=== PATIENT | male | born 1985 | race Caucasian/White ===

== ENCOUNTER 2016-08-20 02:19 | Emergency (ER) | payer MEDICAID ==
[~2016-08-20] VITALS: Ht 187.9 cm; Wt 79.4 kg
[~2016-08-20 02:19] MED LIST: ACIPHEX20 MG PO; ACYCLOVIR800 MG PO; ADDERALL30 MG PO; ALLEGRA180 MG PO; AMOXIL500 MG PO; AMPICILLIN500 MG PO; ANAPROX DS550 MG PO; ATARAX25 MG PO; ATIVAN0.5 MG PO; AUGMENTIN 875 M1 TAB PO; BACTRIM DS 8001 TA1; BACTRIM DS 8001 TA1 PO; BENADRYL25 M2 PO; BENTYL10 MG PO; BENTYL20 MG PO; CATAFLAM50 MG PO; CATAPRES0.1 MG PO; CIPROFLOXACIN500 MG PO; CLARITIN10 MG PO; CLEOCIN HCL150 MG PO; CLEOCIN HCL300 MG PO; CLONIDINE0.1 MG PO; CLONIDINE0.2 MG PO; COMPAZINE10 MG PO; DAYPRO600 M1 PO; DOXYCYCLINE MO100 MG PO; ERYTHROMYCIN5 MG/G2 OP; FLEXERIL10 MG PO; FLEXERIL5 MG PO; HYDROCODONE BIT1 T11 PO; HYDROXYZINE PAM50 MG PO; IBU-8800 MG PO; IBU800 MG PO; KEFLEX500 MG PO; KENALOG0.5% TP; MOTRIN800 MG; MOTRIN800 MG PO; Motrin,Rufen800 MG PO; NAPROSYN500 MG PO; NKHM; NKHM PO; ONDANSETRON4 MG PO; OXYCONTIN40 MG PO; Orphenadrine C100 MG PO; PEN-VEE K500 MG PO; PEPCID20 MG PO; PERCOCET 325 MG1 TA7; PERCOCET 325 MG1 TA7 PO; PHENERGAN W/DM120 ML PO; PHENERGAN25 M1 PO; PREDNICOT20 MG PO; PROVENTIL0.09 MG/AC IH; ROBAXIN-750750 MG PO; ROBAXIN750 MG PO; SEPTRA DS 800 M1 TAB PO; SEROQUEL25 MG PO; SINEMET 25-1001 TA1 PO; SINEMET 25-100M1 TAB PO; SUBOXONE 8 MG-1 EACH SL; TRAMADOL HCL50 MG PO; TRIMOX500 MG PO; ULTRAM50 MG PO; VIBRAMYCIN100 MG PO; VICODIN 5/500 505 MG PO; VICODIN 500 MG-1 TAB PO; VICODIN ES 7501 TA1 PO; VISTARIL25 M1 PO; VISTARIL50 MG PO; VOLTAREN50 M1 PO; ZANTAC150 MG PO; ZITHROMAX Z PA250 MG PO; ZOFRAN ODT4 MG PO; ZOFRAN ODT4 MG SL; ZOFRAN4 MG PO; [UNRECOGNIZED DRUG - OTHER] PO
[2016-08-20 08:06] VITALS: BP 120/75
== END 2016-08-20 08:06 | disposition home or self-care (01) ==
LOC: ED 02:19
DX: R51 Headache (principal); F14.10 Cocaine abuse, uncomplicated; F19.10 Other psychoactive substance abuse, uncomplicated; F17.200 Nicotine dependence, unspecified, uncomplicated

== ENCOUNTER 2017-09-04 13:55 | Inpatient (IN) | payer OTHER ==
[~2017-09-04] VITALS: Ht 188 cm; Wt 85.3 kg
[2017-09-04 15:38] LABS: BASO % 0.4 % (0.0-1.0); EOS % 0.2 % (1.0-4.0); HEMATOCRIT 42.3 % (42.0-52.0); HEMOGLOBIN 14.1 g/dl (14.0-18.0); LYMPH # 1.8 10*3/uL (1.3-4.4); LYMPH % 32.8 % (27.0-41.0); MEAN CELL VOLUME 89.4 fl (80.0-94.0); MEAN CORPUSCULAR HGB 29.8 pg (27.0-31.0); MEAN CORPUSCULAR HGB CONC 33.3 g/dl (33.0-37.0); MEAN PLATELET VOLUME 10.6 fl (9.6-12.3); MONO # 0.4 10*3/uL (0.1-1.0); MONO % 6.3 % (3.0-9.0); NEUT # 3.3 10*3/uL (2.3-7.9); NEUT % 60.1 % (47.0-73.0); PLATELET COUNT AUTOMATED 196 10*3/uL (130-400); RED BLOOD COUNT 4.73 10*6/uL (4.50-5.90); RED CELL DISTRI WIDTH 13.2 % (0-14.5); WHITE BLOOD COUNT 5.5 10*3/uL (4.8-10.8)
[2017-09-04 15:53] LABS: BILIRUBIN NEGATIVE (NEGATIVE); BLOOD NEGATIVE (NEGATIVE); CLARITY CLEAR (CLEAR); COLOR YELLOW (YELLOW); GLUCOSE NEGATIVE (NEGATIVE); KETONE NEGATIVE (NEGATIVE); LEUKO ESTERASE NEGATIVE (NEGATIVE); NITRITE NEGATIVE (NEGATIVE); SPECIFIC GRAVITY 1.015 (1.005-1.030)
[2017-09-04 15:57] LABS: ALBUMIN 3.8 gm/dl (3.1-4.5); ALKALINE PHOSPHATASE 76 U/L (45-117); BUN 8 mg/dl (7-24); CHLORIDE 106 mmol/L (98-107); CREATININE 0.83 mg/dL (0.70-1.30); POTASSIUM 4.2 mmol/L (3.5-5.1); SGOT/AST 30 IU/L (3-35); SGPT/ALT 47 U/L (12-78); SODIUM 137 mmol/L (136-145); TOTAL PROTEIN 7.5 gm/dL (6.4-8.2)
[2017-09-04 16:02] LABS: URINE AMPHETAMINES < 1000 (1000ng/ml); URINE BARBITURATES < 200 (200ng/ml); URINE BENZODIAZEPINES > 200 (200ng/ml); URINE CANNABINOIDS (THC) < 50 (50ng/ml); URINE COCAINE < 300 (300ng/ml); URINE METHADONE < 300 (300ng/ml); URINE OPIATES > 300 (300ng/ml)
[2017-09-04 16:09] LABS: BACTERIA TRACE; MUCOUS 1+; RBC 0-2 rbc/hpf (0-2); WBC 0-2 wbc/hpf (0-5)
[2017-09-04 16:12] LABS: ETHYL ALCOHOL < 3.0 mg/dl (<3)
[2017-09-04 16:14] LABS: URINE PHENCYCLIDINE < 25 (25ng/ml)
[2017-09-04 20:00] VITALS: BP 113/59
[2017-09-05] VITALS: BP 120/71
[2017-09-05 04:00] VITALS: BP 109/65
[2017-09-05 08:00] VITALS: BP 101/49
[2017-09-05 12:00] VITALS: BP 110/56
[2017-09-05] MEDS ORDERED: PRILOSEC20 M1 PO (15:50)
[2017-09-05 16:00] VITALS: BP 120/75
[2017-09-05 20:00] VITALS: BP 122/77
[2017-09-06] VITALS: BP 111/61
[2017-09-06 08:00] VITALS: BP 120/79
[2017-09-06 16:00] VITALS: BP 127/77
[2017-09-06 20:00] VITALS: BP 138/79
[2017-09-07] VITALS: BP 124/81
== END 2017-09-07 07:50 | disposition home or self-care (01) | DRG 897 ==
LOC: 5E 13:55
PROVIDERS: Family Medicine
DX: F11.10 Opioid abuse, uncomplicated (principal); F13.10 Sedative, hypnotic or anxiolytic abuse, uncomplicated; F14.10 Cocaine abuse, uncomplicated; F41.9 Anxiety disorder, unspecified; F17.210 Nicotine dependence, cigarettes, uncomplicated; Z84.89 Family history of other specified conditions; Z71.6 Tobacco abuse counseling

== ENCOUNTER 2019-02-13 13:41 | Inpatient (IN) | payer OTHER ==
[~2019-02-13] VITALS: Ht 188 cm; Wt 76.7 kg
[~2019-02-13 13:41] MED LIST changes: +PRILOSEC20 M1 PO; +[UNRECOGNIZED DRUG - OTHER]
--- NOTE | 2019-02-13 14:50 | NUR ---
A 33, admitted to , under the services of SEBASTIÁN Baeza DO with a diagnosis of OPIATE/ETOH WITHDRAWAL. Chief complaint is WITHDRAWAL. Patient arrived via ambulatory from [place]. Monitor applied. Initial assessment completed. Vital signs taken and recorded. SEBASTIÁN BAEZA DO notified of admission to the unit. Orders received. See assessment for past medical history, medications and allergies. Patient oriented to unit. Clothing/patient valuable form completed. RAMONITA BRINK
--- NOTE | 2019-02-13 15:00 | NUR ---
PATIENT INFORMED NOT TO LEAVE THE FLOOR OR ITS AN AUTOMATIC DISCHARGE. PATIENT STATED UNDERSTANDING.
--- NOTE | 2019-02-13 15:09 | NUR ---
MADE AWARE THAT PATIENT IS ON THE FLOOR, AND TAKES NO HOME MEDS. STATED OK.
[2019-02-13 15:10] VITALS: BP 123/82
--- NOTE | 2019-02-13 15:16 | NUR ---
PATIENT MEETS [facility]. CINA=[id number]. PATIENT WANTS TO FOLLOW UP WITH [facility] FOR HIS AFTERCARE PLAN. PATIENT HAS AN APPOINTMENT ON SUNDAY, January AT 9AM FOR FOR THE [employer] SERVICE. RICHIE SMITH B.A. HOSPICE DIRECTOR
[2019-02-13 16:00] VITALS: BP 121/76
--- NOTE | 2019-02-13 16:16 | NUR ---
PATIENT MADE AWARE THAT URINE SAMPLE NEEDED BEFORE MEDICATION CAN BE ADMINISTERED. STATED UNDERSTANDING.
[2019-02-13 16:24] LABS: BASO % 0.5 % (0.0-1.0); EOS # 0.1 10*3/uL (0.0-0.4); EOS % 1.6 % (1.0-4.0); HEMATOCRIT 41.9 % (42.0-52.0); HEMOGLOBIN 13.6 g/dl (14.0-18.0); LYMPH % 31.3 % (27.0-41.0); MEAN CELL VOLUME 89.5 fl (80.0-94.0); MEAN CORPUSCULAR HGB 29.1 pg (27.0-31.0); MEAN CORPUSCULAR HGB CONC 32.5 g/dl (33.0-37.0); MEAN PLATELET VOLUME 10.2 fl (9.6-12.3); MONO # 0.9 10*3/uL (0.1-1.0); MONO % 14.4 % (3.0-9.0); NEUT # 3.3 10*3/uL (2.3-7.9); PLATELET COUNT AUTOMATED 244 10*3/uL (130-400); RED BLOOD COUNT 4.68 10*6/uL (4.50-5.90); RED CELL DISTRI WIDTH 13.7 % (0-14.5); WHITE BLOOD COUNT 6.3 10*3/uL (4.8-10.8)
[2019-02-13 16:42] LABS: ALBUMIN 3.4 gm/dl (3.1-4.5); ALKALINE PHOSPHATASE 68 U/L (45-117); BUN 15 mg/dl (7-24); CHLORIDE 105 mmol/L (98-107); CREATININE 0.78 mg/dL (0.70-1.30); SGOT/AST 34 IU/L (3-35); SGPT/ALT 45 U/L (12-78); SODIUM 137 mmol/L (136-145); TOTAL PROTEIN 7.6 gm/dL (6.4-8.2)
[2019-02-13 16:44] LABS: ETHYL ALCOHOL < 3.0 mg/dl (<3)
--- NOTE | 2019-02-13 17:45 | NUR ---
URINE SPECIMEN SENT TO LAB
[2019-02-13 18:07] LABS: BILIRUBIN NEGATIVE (NEGATIVE); BLOOD NEGATIVE (NEGATIVE); CLARITY CLEAR (CLEAR); COLOR YELLOW (YELLOW); GLUCOSE NEGATIVE (NEGATIVE); KETONE NEGATIVE (NEGATIVE); LEUKO ESTERASE NEGATIVE (NEGATIVE); NITRITE NEGATIVE (NEGATIVE); SPECIFIC GRAVITY 1.015 (1.005-1.030); UROBILINOGEN 0.2 E.U./dl (0.2-1.0)
[2019-02-13 18:16] LABS: URINE AMPHETAMINES < 1000 (1000ng/ml); URINE BARBITURATES < 200 (200ng/ml); URINE BENZODIAZEPINES < 200 (200ng/ml); URINE CANNABINOIDS (THC) < 50 (50ng/ml); URINE COCAINE < 300 (300ng/ml); URINE METHADONE < 300 (300ng/ml); URINE OPIATES < 300 (300ng/ml)
[2019-02-13 18:20] LABS: URINE PHENCYCLIDINE < 25 (25ng/ml)
[2019-02-13 20:00] VITALS: BP 126/80
--- NOTE | 2019-02-13 20:18 | NUR ---
24 HR chart check completed.
--- NOTE | 2019-02-13 22:46 | NUR ---
Patient displaying withdrawal symptoms, including: irritability, anxiousness, restlessness and agitation. Scheduled/PRN medications provided, SEE EMAR. Will continue to monitor medication effectiveness.
[2019-02-14] VITALS: BP 130/78
--- NOTE | 2019-02-14 | NUR ---
[facility] "HELPING". REQUESTING SHOWER. MONITOR REMOVED
--- NOTE | 2019-02-14 01:00 | NUR ---
Patient resting. Responding to scheduled medications with fewer complaints of pain and anxiety.
[2019-02-14 04:00] VITALS: BP 126/78
--- NOTE | 2019-02-14 04:00 | NUR ---
Patient resting. Responding to scheduled medications with fewer complaints of pain and anxiety.
[2019-02-14 08:00] VITALS: BP 122/76
[2019-02-14 12:00] VITALS: BP 110/76
--- NOTE | 2019-02-14 14:01 | NUR ---
PATIENT IS GOING TO FOLLOW UP WITH [facility] IN [place] FOR MEDICATION ASSISTED TREATMENT. [place] STAFF REVIEWED APPOINTMENT WITH PATIENT. PATIENT AGREES AND UNDERSTANDS HIS AFTERCARE PLAN. RICHIE SMITH B.A. ENGRAVER JEWELRY
[2019-02-14 16:00] VITALS: BP 124/78
--- NOTE | 2019-02-14 19:52 | NUR ---
24 HR chart check completed.
[2019-02-14 20:00] VITALS: BP 119/77
--- NOTE | 2019-02-14 20:00 | NUR ---
Patient resting. Responding to scheduled medications with fewer complaints of pain and anxiety.
--- NOTE | 2019-02-14 22:30 | NUR ---
Patient resting. Responding to scheduled medications with fewer complaints of pain and anxiety.
[2019-02-15] VITALS: BP 107/75
--- NOTE | 2019-02-15 | NUR ---
Patient SLEEPING. Responding to scheduled medications with fewer complaints of pain and anxiety.
--- NOTE | 2019-02-15 03:29 | NUR ---
ROUTINE MEDS PROVIDED WITH ASSIST WITH WITHDRAWAL S/S, SEE EMAR.
--- NOTE | 2019-02-15 06:00 | NUR ---
Patient resting. Responding to scheduled medications with fewer complaints of pain and anxiety.
[2019-02-15 08:00] VITALS: BP 118/86
[2019-02-15 12:00] VITALS: BP 127/83
[2019-02-15 16:00] VITALS: BP 109/66
--- NOTE | 2019-02-15 18:01 | NUR ---
DIETARY CAME TO DESK AND SAID PATIENT WAS NOT IN ROOM WAS IT OK TO LEAVE HIS TRAY. UPON INVESTIGATING PATIENT LEFT AMA.
--- NOTE | 2019-02-15 18:09 | NUR ---
RIGGING ENGINEER AND DR. JAMES AWARE OF AMA.
== END 2019-02-15 18:09 | disposition left against medical advice (07) | DRG 770 ==
LOC: 4E 13:41
PROVIDERS: Student in an Organized Health Care Education/Training Program; ADMIT Internal Medicine
DX: F10.230 Alcohol dependence with withdrawal, uncomplicated (principal); F11.23 Opioid dependence with withdrawal; D64.9 Anemia, unspecified; Z53.29 Procedure and treatment not carried out because of patient's decision for other reasons; F14.10 Cocaine abuse, uncomplicated; F17.210 Nicotine dependence, cigarettes, uncomplicated; Z71.6 Tobacco abuse counseling; Z79.899 Other long term (current) drug therapy

== ENCOUNTER 2019-04-15 16:48 | Emergency (ER) | payer OTHER ==
[~2019-04-15] VITALS: Ht 187.9 cm; Wt 80.7 kg
[2019-04-15 16:49] VITALS: BP 124/69
[2019-04-15] MEDS ORDERED: OMNICEF300 MG PO (17:18)
== END 2019-04-15 17:47 | disposition home or self-care (01) ==
LOC: ED 16:48
DX: H66.91 Otitis media, unspecified, right ear (principal); H72.91 Unspecified perforation of tympanic membrane, right ear; K21.9 Gastro-esophageal reflux disease without esophagitis

== ENCOUNTER 2019-05-13 09:20 | Emergency (ER) | payer OTHER ==
[~2019-05-13] VITALS: Ht 187.9 cm; Wt 83.9 kg
[~2019-05-13 09:20] MED LIST changes: +OMNICEF300 MG PO
[2019-05-13 09:22] VITALS: BP 107/72
[2019-05-13] MEDS ORDERED: OMNICEF300 MG PO (09:41)
[2019-05-13] MEDS ORDERED: CIPRODEX 0.3%-7.5 ML OT (09:41)
== END 2019-05-13 09:59 | disposition home or self-care (01) ==
LOC: ED 09:20
DX: H65.91 Unspecified nonsuppurative otitis media, right ear (principal); K21.9 Gastro-esophageal reflux disease without esophagitis; F17.200 Nicotine dependence, unspecified, uncomplicated; Z79.2 Long term (current) use of antibiotics

== ENCOUNTER 2019-09-15 01:42 | Emergency (ER) | payer OTHER ==
[~2019-09-15] VITALS: Ht 170.1 cm; Wt 90.7 kg
[~2019-09-15 01:42] MED LIST changes: +CIPRODEX 0.3%-7.5 ML OT
[2019-09-15 02:21] VITALS: BP 130/86
[2019-09-15] MEDS ORDERED: CEPHALEXIN500 M1 PO (02:36)
== END 2019-09-15 03:26 | disposition home or self-care (01) ==
LOC: ED 02:13
DX: S61.210A Laceration without foreign body of right index finger without damage to nail, initial encounter (principal); K21.9 Gastro-esophageal reflux disease without esophagitis; F41.9 Anxiety disorder, unspecified; F17.200 Nicotine dependence, unspecified, uncomplicated; Z79.899 Other long term (current) drug therapy; W26.0XXA Contact with knife, initial encounter; Y93.9 Activity, unspecified; Y92.89 Other specified places as the place of occurrence of the external cause; Y99.8 Other external cause status

== ENCOUNTER 2019-10-31 17:00 | Emergency (ER) | payer OTHER ==
[~2019-10-31] VITALS: Ht 187.9 cm; Wt 81.6 kg
[~2019-10-31 17:00] MED LIST changes: +CEPHALEXIN500 M1 PO
[2019-10-31 17:07] VITALS: BP 140/89
[2019-10-31 20:54] LABS: BILIRUBIN NEGATIVE (NEGATIVE); BLOOD 1+ (NEGATIVE); CLARITY CLEAR (CLEAR); COLOR YELLOW (YELLOW); GLUCOSE NEGATIVE (NEGATIVE); KETONE NEGATIVE (NEGATIVE); LEUKO ESTERASE NEGATIVE (NEGATIVE); NITRITE NEGATIVE (NEGATIVE); UROBILINOGEN 0.2 E.U./dl (0.2-1.0)
[2019-10-31 20:57] LABS: BACTERIA TRACE; EPITHELIAL CELLS 0-2; MUCOUS 2+; WBC 0-2 wbc/hpf (0-5)
[2019-10-31 20:58] LABS: URINE AMPHETAMINES > 1000 (1000ng/ml); URINE BARBITURATES < 200 (200ng/ml); URINE BENZODIAZEPINES < 200 (200ng/ml); URINE CANNABINOIDS (THC) < 50 (50ng/ml); URINE COCAINE > 300 (300ng/ml); URINE METHADONE < 300 (300ng/ml); URINE OPIATES > 300 (300ng/ml)
[2019-10-31 21:01] LABS: URINE PHENCYCLIDINE < 25 (25ng/ml)
== END 2019-10-31 21:25 | disposition home or self-care (01) ==
LOC: ED 17:00
PROVIDERS: Nurse Practitioner Family
DX: R10.30 Lower abdominal pain, unspecified (principal); K21.9 Gastro-esophageal reflux disease without esophagitis; F17.200 Nicotine dependence, unspecified, uncomplicated; Z79.899 Other long term (current) drug therapy

== ENCOUNTER 2020-09-12 16:50 | Inpatient (IN) | payer OTHER ==
[~2020-09-12] VITALS: Ht 187.9 cm; Wt 77.7 kg
[2020-09-12 17:01] VITALS: BP 123/51
[2020-09-12 18:13] LABS: BUN 14 mg/dl (7-24); CHLORIDE 110 mmol/L (98-107); CREATININE 0.94 mg/dL (0.70-1.30); POTASSIUM 3.8 mmol/L (3.5-5.1); SODIUM 139 mmol/L (136-145)
[2020-09-12 18:22] LABS: ACETAMINOPHEN (TYLENOL) < 5.0 ug/ml (10-30); ETHYL ALCOHOL < 3.0 mg/dl (<3)
[2020-09-12 18:36] LABS: BASO % 0.5 % (0.0-1.0); EOS # 0.1 10*3/uL (0.0-0.4); EOS % 1.5 % (1.0-4.0); HEMATOCRIT 46.4 % (42.0-52.0); LYMPH # 2.7 10*3/uL (1.3-4.4); LYMPH % 36.4 % (27.0-41.0); MEAN CELL VOLUME 94.3 fl (80.0-94.0); MEAN CORPUSCULAR HGB 28.7 pg (27.0-31.0); MEAN CORPUSCULAR HGB CONC 30.4 g/dl (33.0-37.0); MEAN PLATELET VOLUME 10.4 fl (9.6-12.3); MONO # 0.8 10*3/uL (0.1-1.0); MONO % 11.2 % (3.0-9.0); NEUT # 3.8 10*3/uL (2.3-7.9); NEUT % 50.3 % (47.0-73.0); PLATELET COUNT AUTOMATED 196 10*3/uL (130-400); RED BLOOD COUNT 4.92 10*6/uL (4.50-5.90); RED CELL DISTRI WIDTH 13.4 % (0-14.5); WHITE BLOOD COUNT 7.5 10*3/uL (4.8-10.8)
[2020-09-12 18:41] VITALS: BP 107/80
[2020-09-12 19:48] VITALS: BP 132/70
[2020-09-12 21:01] LABS: BILIRUBIN Negative (Negative); BLOOD 1+ (Negative); CLARITY Clear (Clear); COLOR Yellow (Yellow); GLUCOSE Negative (Negative); KETONE Negative (Negative); LEUKO ESTERASE Negative (Negative); NITRITE Negative (Negative); PH 5.5 (4.5-8.0); SPECIFIC GRAVITY >= 1.030 (1.001-1.030)
[2020-09-12 21:08] LABS: URINE AMPHETAMINES > 1000 (1000ng/ml); URINE BARBITURATES < 200 (200ng/ml); URINE BENZODIAZEPINES < 200 (200ng/ml); URINE CANNABINOIDS (THC) > 50 (50ng/ml); URINE COCAINE > 300 (300ng/ml); URINE METHADONE < 300 (300ng/ml); URINE OPIATES > 300 (300ng/ml); URINE PHENCYCLIDINE < 25 (25ng/ml)
[2020-09-12 21:15] LABS: BACTERIA TRACE; MUCOUS TRACE; WBC 0-2 wbc/hpf (0-5)
[2020-09-12 23:33] VITALS: BP 122/84
[2020-09-13] VITALS (7 sets, daily range): BP systolic 99–116; BP diastolic 46–77
[2020-09-13 05:52] LABS: ALKALINE PHOSPHATASE 91 U/L (45-117); BUN 12 mg/dl (7-24); CHLORIDE 108 mmol/L (98-107); FREE T4 1.12 ng/dl (0.76-1.46); SGOT/AST 37 IU/L (3-35); SGPT/ALT 42 U/L (12-78); SODIUM 134 mmol/L (136-145); TOTAL PROTEIN 7.9 gm/dL (6.4-8.2)
[2020-09-13 06:46] LABS: BASO % 0.3 % (0.0-1.0); EOS # 0.2 10*3/uL (0.0-0.4); EOS % 2.9 % (1.0-4.0); HEMATOCRIT 42.1 % (42.0-52.0); LYMPH # 2.6 10*3/uL (1.3-4.4); LYMPH % 43.4 % (27.0-41.0); MEAN CORPUSCULAR HGB 28.9 pg (27.0-31.0); MEAN PLATELET VOLUME 10.9 fl (9.6-12.3); MONO # 0.7 10*3/uL (0.1-1.0); MONO % 11.2 % (3.0-9.0); NEUT # 2.5 10*3/uL (2.3-7.9); RED BLOOD COUNT 4.95 10*6/uL (4.50-5.90); RED CELL DISTRI WIDTH 13.5 % (0-14.5); WHITE BLOOD COUNT 5.9 10*3/uL (4.8-10.8)
[2020-09-13 06:50] LABS: MEAN CELL VOLUME 85.1 fl (80.0-94.0); PLATELET COUNT AUTOMATED 267 10*3/uL (130-400)
[2020-09-14 08:00] VITALS: BP 113/75
[2020-09-14 12:00] VITALS: BP 124/67
[2020-09-14 16:00] VITALS: BP 134/80
[2020-09-14 20:00] VITALS: BP 117/65
[2020-09-15] VITALS: BP 132/84
[2020-09-15 08:00] VITALS: BP 120/84
== END 2020-09-15 11:02 | disposition home or self-care (01) | DRG 812 ==
LOC: ED 16:50 → ICCU 22:35 → 5E 22:35 → EDHOLD 22:35 → ICCU 09-13 07:12 → 5E 09-13 14:30
PROVIDERS: Internal Medicine; Student in an Organized Health Care Education/Training Program; ADMIT Internal Medicine; ATTEND Internal Medicine
DX: T43.621A Poisoning by amphetamines, accidental (unintentional), initial encounter (principal); T40.601A Poisoning by unspecified narcotics, accidental (unintentional), initial encounter; E87.1 Hypo-osmolality and hyponatremia; E44.0 Moderate protein-calorie malnutrition; F15.10 Other stimulant abuse, uncomplicated; F14.10 Cocaine abuse, uncomplicated; F12.10 Cannabis abuse, uncomplicated; F11.10 Opioid abuse, uncomplicated; R00.1 Bradycardia, unspecified; F17.210 Nicotine dependence, cigarettes, uncomplicated; E87.8 Other disorders of electrolyte and fluid balance, not elsewhere classified; R74.01 Elevation of levels of liver transaminase levels; F13.10 Sedative, hypnotic or anxiolytic abuse, uncomplicated; F17.200 Nicotine dependence, unspecified, uncomplicated; Z53.29 Procedure and treatment not carried out because of patient's decision for other reasons; Y92.89 Other specified places as the place of occurrence of the external cause; Z71.6 Tobacco abuse counseling; Z68.22 Body mass index [BMI] 22.0-22.9, adult

== ENCOUNTER 2021-05-24 09:49 | Emergency (ER) | payer OTHER ==
[~2021-05-24] VITALS: Ht 187.9 cm; Wt 81.6 kg
[2021-05-24 09:54] VITALS: BP 131/86
[2021-05-24] MEDS ORDERED: CLEOCIN HCL150 MG PO (12:24)
[2021-05-24] MEDS ORDERED: HYDROCODONE-AC1 EAC1 PO (12:24)
== END 2021-05-24 12:36 | disposition home or self-care (01) ==
LOC: ED 09:49
DX: K04.7 Periapical abscess without sinus (principal); Z87.891 Personal history of nicotine dependence

== ENCOUNTER 2021-11-17 15:50 | Emergency (ER) | payer OTHER ==
[~2021-11-17] VITALS: Ht 187.9 cm; Wt 86.2 kg
[~2021-11-17 15:50] MED LIST changes: +HYDROCODONE-AC1 EAC1 PO
[2021-11-17 16:10] VITALS: BP 138/78
== END 2021-11-17 18:53 | disposition home or self-care (01) ==
LOC: ED 15:50
DX: S81.812A Laceration without foreign body, left lower leg, initial encounter (principal); Z87.891 Personal history of nicotine dependence; Z98.890 Other specified postprocedural states; W29.3XXA Contact with powered garden and outdoor hand tools and machinery, initial encounter; Y93.89 Activity, other specified; Y92.89 Other specified places as the place of occurrence of the external cause; Y99.8 Other external cause status

== ENCOUNTER 2022-03-17 11:39 | Emergency (ER) | payer OTHER ==
[~2022-03-17] VITALS: Ht 182.8 cm; Wt 104.3 kg
[2022-03-17 11:55] VITALS: BP 114/78
[2022-03-17 12:07] LABS: BASO % 0.4 % (0.0-1.0); EOS % 0.2 % (1.0-4.0); HEMATOCRIT 35.4 % (42.0-52.0); LYMPH # 1.3 10*3/uL (1.3-4.4); LYMPH % 16.5 % (27.0-41.0); MEAN CELL VOLUME 88.5 fl (80.0-94.0); MEAN CORPUSCULAR HGB 29.8 pg (27.0-31.0); MEAN CORPUSCULAR HGB CONC 33.6 g/dl (33.0-37.0); MEAN PLATELET VOLUME 9.6 fl (9.6-12.3); MONO # 0.4 10*3/uL (0.1-1.0); MONO % 5.2 % (3.0-9.0); NEUT # 6.2 10*3/uL (2.3-7.9); NEUT % 77.5 % (47.0-73.0); PLATELET COUNT AUTOMATED 255 10*3/uL (130-400); RED CELL DISTRI WIDTH 14.2 % (0-14.5)
[2022-03-17 12:22] LABS: ALKALINE PHOSPHATASE 83 U/L (45-117); BUN 10 mg/dl (7-24); CHLORIDE 104 mmol/L (98-107); CREATININE 0.73 mg/dL (0.70-1.30); POTASSIUM 4.3 mmol/L (3.5-5.1); SGPT/ALT 37 U/L (12-78); SODIUM 137 mmol/L (136-145); TOTAL PROTEIN 7.2 gm/dL (6.4-8.2)
[2022-03-17 12:27] LABS: ETHYL ALCOHOL < 3.0 mg/dl (<3)
== END 2022-03-17 13:09 | disposition left against medical advice (07) ==
LOC: ED 11:39
PROVIDERS: Nurse Practitioner Family
DX: S09.90XA Unspecified injury of head, initial encounter (principal); M54.2 Cervicalgia; Z98.890 Other specified postprocedural states; Z87.891 Personal history of nicotine dependence; W18.39XA Other fall on same level, initial encounter; Y93.89 Activity, other specified; Y92.89 Other specified places as the place of occurrence of the external cause; Y99.8 Other external cause status

== ENCOUNTER 2022-04-26 06:16 | Emergency (ER) | payer OTHER ==
[~2022-04-26] VITALS: Ht 182.8 cm; Wt 81.6 kg
[2022-04-26 06:22] VITALS: BP 165/86
[2022-04-26 07:01] LABS: URINE AMPHETAMINES Positive (1000ng/ml); URINE BARBITURATES Negative (200ng/ml); URINE BENZODIAZEPINES Negative (200ng/ml); URINE CANNABINOIDS (THC) Negative (50ng/ml); URINE COCAINE Negative (300ng/ml); URINE METHADONE Negative (300ng/ml); URINE OPIATES Negative (300ng/ml); URINE PHENCYCLIDINE Negative (25ng/ml)
[2022-04-26] MEDS ORDERED: XANAX0.5 MG PO (09:55)
== END 2022-04-26 10:22 | disposition home or self-care (01) ==
LOC: ED 06:16
PROVIDERS: Internal Medicine
DX: R00.0 Tachycardia, unspecified (principal); F15.10 Other stimulant abuse, uncomplicated; Z98.890 Other specified postprocedural states; F10.90 Alcohol use, unspecified, uncomplicated; T43.625A Adverse effect of amphetamines, initial encounter; F17.200 Nicotine dependence, unspecified, uncomplicated; Z79.899 Other long term (current) drug therapy; Y92.89 Other specified places as the place of occurrence of the external cause

== ENCOUNTER 2024-07-28 17:39 | Inpatient (IN) | payer MEDICAID ==
[~2024-07-28] VITALS: Ht 188 cm; Wt 78.9 kg
[~2024-07-28 17:39] MED LIST changes: +XANAX0.5 MG PO
[2024-07-28 17:54] VITALS: BP 121/87
[2024-07-28] MEDS ORDERED: Piperacillin Sodium/Tazobact 50 ML IV ONE (18:55)
[2024-07-28] MEDS ORDERED: Vancomycin Hydrochloride 250 ML IV ONE (18:55)
[2024-07-28 19:40] LABS: BASO % 0.4 % (0.0-1.0); EOS # 0.1 10*3/uL (0.0-0.4); EOS % 1.3 % (1.0-4.0); HEMATOCRIT 38.5 % (42.0-52.0); MEAN CELL VOLUME 89.3 fl (80.0-94.0); MEAN CORPUSCULAR HGB 29.5 pg (27.0-31.0); MEAN PLATELET VOLUME 9.9 fl (9.6-12.3); MONO # 0.5 10*3/uL (0.1-1.0); MONO % 7.8 % (3.0-9.0); NEUT # 4.3 10*3/uL (2.3-7.9); NEUT % 63.8 % (47.0-73.0); PLATELET COUNT AUTOMATED 259 10*3/uL (130-400); RED BLOOD COUNT 4.31 10*6/uL (4.50-5.90); WHITE BLOOD COUNT 6.8 10*3/uL (4.8-10.8)
[2024-07-28 19:46] VITALS: BP 128/66
[2024-07-28 20:00] LABS: BUN 11 mg/dl (9-23); CHLORIDE 102 mmol/L (98-107); POTASSIUM 3.6 mmol/L (3.4-5.1)
[2024-07-28] MEDS ORDERED: METHOCARBAMOL 750 MG TAB PO PRN (23:10)
[2024-07-28] MEDS ORDERED: rOPINIRole Hydrochloride 0.25 MG TAB PO PRN (23:10)
[2024-07-28] MEDS ORDERED: Dicyclomine Hydrochloride 20 MG TAB PO PRN (23:10)
[2024-07-28] MEDS ORDERED: diphenhydrAMINE hydrochloride 50 MG/ML VIAL IV PRN (23:10)
[2024-07-28] MEDS ORDERED: hydrOXYzine 50 MG CAP PO PRN (23:10)
[2024-07-28] MEDS ORDERED: Magnesium Hydroxide 30 ML UDC PO PRN (23:15)
[2024-07-28] MEDS ORDERED: Ondansetron Hydrochloride 4 MG/2 ML VIAL IV PRN (23:15)
[2024-07-28] MEDS ORDERED: BISACODYL 10 MG SUPP R PRN (23:15)
[2024-07-28] MEDS ORDERED: BISACODYL 5 MG TAB PO PRN (23:15)
[2024-07-28 23:35] VITALS: BP 138/89
[2024-07-28] MEDS ORDERED: Vancomycin Hydrochloride 1,000 MG in SODIUM CHLORIDE 0.9% 250 ML IV SCH (23:55)
[2024-07-29] VITALS: BP 138/89
[2024-07-29] MEDS ORDERED: ADDERALL 20 MG20 MG PO (00:04)
[2024-07-29] MEDS ORDERED: Piperacillin Sodium/Tazobact 50 ML IV SCH (02:00)
[2024-07-29 02:22] LABS: BILIRUBIN Negative (Negative); BLOOD Negative (Negative); CLARITY Clear (Clear); COLOR Yellow (Yellow); GLUCOSE Negative (Negative); KETONE Negative (Negative); LEUKO ESTERASE Negative (Negative); NITRITE Negative (Negative)
[2024-07-29 02:35] LABS: URINE AMPHETAMINES Positive (1000ng/ml); URINE BARBITURATES Negative (200ng/ml); URINE BENZODIAZEPINES Negative (200ng/ml); URINE CANNABINOIDS (THC) Negative (50ng/ml); URINE COCAINE Negative (300ng/ml); URINE METHADONE Negative (300ng/ml); URINE OPIATES Negative (300ng/ml); URINE PHENCYCLIDINE Negative (25ng/ml)
[2024-07-29 02:43] LABS: WBC 0-2 wbc/hpf (0-5)
[2024-07-29] MEDS ORDERED: Buprenorphine Hydrochloride 2 MG TAB SL SCH (06:00)
[2024-07-29 06:39] LABS: BASO % 0.4 % (0.0-1.0); EOS # 0.1 10*3/uL (0.0-0.4); EOS % 2.1 % (1.0-4.0); HEMATOCRIT 39.6 % (42.0-52.0); MEAN CORPUSCULAR HGB 29.8 pg (27.0-31.0); MEAN CORPUSCULAR HGB CONC 33.1 g/dl (33.0-37.0); MONO # 0.5 10*3/uL (0.1-1.0); MONO % 9.5 % (3.0-9.0); NEUT # 2.7 10*3/uL (2.3-7.9); NEUT % 51.1 % (47.0-73.0); PLATELET COUNT AUTOMATED 267 10*3/uL (130-400); RED CELL DISTRI WIDTH 13.1 % (0-14.5); WHITE BLOOD COUNT 5.3 10*3/uL (4.8-10.8)
[2024-07-29 07:33] LABS: ALKALINE PHOSPHATASE 74 U/L (46-116); BUN 11 mg/dl (9-23); CHLORIDE 103 mmol/L (98-107); CHOLESTEROL 142 mg/dL (<200); FREE T4 1.16 ng/dl (0.89-1.76); LDL CHOLESTEROL 66 mg/dL (9-159); POTASSIUM 3.6 mmol/L (3.4-5.1); SGPT/ALT 22 U/L (5-49); TOTAL PROTEIN 6.8 gm/dL (6.0-8.0); TRIGLYCERIDES 45 mg/dl (<150); VITAMIN D, 25-HYDROXY 43.4 ng/mL (30-100)
[2024-07-29 08:00] VITALS: BP 106/64
[2024-07-29] MEDS ORDERED: Vancomycin Hydrochloride 1,250 MG in SODIUM CHLORIDE 0.9% 250 ML IV SCH (09:00)
[2024-07-29] MEDS ORDERED: Nicotine 21 MG PATCH T SCH (10:00)
[2024-07-29] MEDS ORDERED: Enoxaparin Sodium 40 MG/0.4 ML SYR SC SCH (10:00)
[2024-07-29 12:00] VITALS: BP 107/67
[2024-07-29] MEDS ORDERED: SEPTDS PO (13:13)
[2024-07-29] MEDS ORDERED: Buprenorphine Hydrochloride 2 MG TAB SL ONE (23:55)
[2024-07-30] MEDS ORDERED: Buprenorphine Hydrochloride 2 MG TAB SL SCH (06:00)
[2024-07-31] MEDS ORDERED: Buprenorphine Hydrochloride 2 MG TAB SL SCH (10:00)
== END 2024-07-29 14:15 | disposition home or self-care (01) | DRG 721 ==
LOC: ED 17:39 → 5E 22:02 → EDHOLD 22:02 → 5E 23:02
PROVIDERS: Internal Medicine; Student in an Organized Health Care Education/Training Program; ADMIT Internal Medicine; ATTEND Internal Medicine
PROC: 02HV33Z Insertion of Infusion Device into Superior Vena Cava, Percutaneous Approach (ICD-10-PCS; principal; 2024-07-28)
PROC: B548ZZA Ultrasonography of Superior Vena Cava, Guidance (ICD-10-PCS; 2024-07-28)
DX: T80.29XA Infection following other infusion, transfusion and therapeutic injection, initial encounter (principal); L03.116 Cellulitis of left lower limb; E44.0 Moderate protein-calorie malnutrition; D64.9 Anemia, unspecified; F11.13 Opioid abuse with withdrawal; F17.210 Nicotine dependence, cigarettes, uncomplicated; Z71.6 Tobacco abuse counseling; Z79.899 Other long term (current) drug therapy; Z68.22 Body mass index [BMI] 22.0-22.9, adult

== ENCOUNTER 2024-12-17 12:18 | Emergency (ER) | payer OTHER ==
[~2024-12-17] VITALS: Wt 81.6 kg
[~2024-12-17 12:18] MED LIST changes: +ADDERALL 20 MG20 MG PO; +SEPTDS PO
[2024-12-17 12:26] VITALS: BP 134/83
[2024-12-17] MEDS ORDERED: diphenhydrAMINE hydrochloride 50 MG/ML VIAL IV ONE (12:30)
[2024-12-17] MEDS ORDERED: Metoclopramide Hydrochloride 10 MG/2 ML VIAL IV ONE (12:30)
[2024-12-17] MEDS ORDERED: SODIUM CHLORIDE 0.9% 1,000 ML IV ONE (12:30)
[2024-12-17] MEDS ORDERED: SUBOXONE 8 MG-1 EACH BC (12:32)
[2024-12-17] MEDS ORDERED: IOHEXOL 300 MG/ML 100 ML VIAL IV ONE (12:45)
[2024-12-17] MEDS ORDERED: Ondansetron Hydrochloride 4 MG TAB PO ONE (12:45)
[2024-12-17 12:50] LABS: BILIRUBIN Negative (Negative); BLOOD Negative (Negative); CLARITY Clear (Clear); COLOR Yellow (Yellow); KETONE Negative (Negative); LEUKO ESTERASE Negative (Negative); NITRITE Negative (Negative); PH 6.5 (4.5-8.0); SPECIFIC GRAVITY 1.010 (1.001-1.030); UROBILINOGEN 0.2 E.U./dl (0.0-1.0)
[2024-12-17 13:04] LABS: EPITHELIAL CELLS 0-2; RBC 0-2 rbc/hpf (0-2); WBC 0-2 wbc/hpf (0-5)
[2024-12-17] MEDS ORDERED: IOHEXOL 300 MG/ML 100 ML VIAL ONE (13:07)
[2024-12-17] MEDS ORDERED: MAGNESIUM CITRATE 296 ML BOT PO ONE (13:40)
[2024-12-17] MEDS ORDERED: Na Phos, Dibasic/Na Phos, Mo 1 EA BOT R ONE (14:05)
[2024-12-17] MEDS ORDERED: COLACE 2-IN-11 EACH PO (14:12)
[2024-12-17] MEDS ORDERED: MIRALAX POWDER17 G1 PO (14:43)
== END 2024-12-17 14:50 | disposition home or self-care (01) ==
LOC: ED 12:18
PROVIDERS: Emergency Medicine
DX: K59.00 Constipation, unspecified (principal); R10.30 Lower abdominal pain, unspecified; R11.2 Nausea with vomiting, unspecified; F41.9 Anxiety disorder, unspecified; K21.9 Gastro-esophageal reflux disease without esophagitis; Z98.890 Other specified postprocedural states

== ENCOUNTER 2025-02-07 00:27 | Emergency (ER) | payer MEDICAID ==
[~2025-02-07 00:27] MED LIST changes: +COLACE 2-IN-11 EACH PO; +MIRALAX POWDER17 G1 PO; +SUBOXONE 8 MG-1 EACH BC
[2025-02-07 00:35] VITALS: BP 156/134
[2025-02-08] MEDS ORDERED: CEPHALEXIN500 M1 PO (15:49)
== END 2025-02-07 02:26 | disposition home or self-care (01) ==
LOC: ED 00:27
DX: S66.912A Strain of unspecified muscle, fascia and tendon at wrist and hand level, left hand, initial encounter (principal); F90.9 Attention-deficit hyperactivity disorder, unspecified type; K21.9 Gastro-esophageal reflux disease without esophagitis; F41.9 Anxiety disorder, unspecified; Z98.890 Other specified postprocedural states; X58.XXXA Exposure to other specified factors, initial encounter; Y93.89 Activity, other specified; Y92.89 Other specified places as the place of occurrence of the external cause; Y99.8 Other external cause status

== ENCOUNTER 2025-02-08 14:29 | Emergency (ER) | payer MEDICAID ==
[~2025-02-08] VITALS: Ht 187.9 cm; Wt 81.6 kg
[2025-02-08 14:42] VITALS: BP 132/98
[2025-02-08] MEDS ORDERED: CEPHALEXIN500 M1 PO (15:49)
== END 2025-02-08 15:58 | disposition home or self-care (01) ==
LOC: ED 14:29
DX: M79.632 Pain in left forearm (principal); R22.32 Localized swelling, mass and lump, left upper limb; K21.9 Gastro-esophageal reflux disease without esophagitis; F41.9 Anxiety disorder, unspecified; Z98.890 Other specified postprocedural states

== ENCOUNTER 2025-03-12 20:58 | Emergency (ER) | payer MEDICAID ==
[~2025-03-12] VITALS: Ht 187.9 cm; Wt 92.1 kg
[2025-03-12 21:06] VITALS: BP 145/92
[2025-03-12] MEDS ORDERED: IBUPROFEN 600 MG TAB PO ONE (21:35)
== END 2025-03-12 22:40 | disposition home or self-care (01) ==
LOC: ED 20:58
DX: S90.02XA Contusion of left ankle, initial encounter (principal); F41.9 Anxiety disorder, unspecified; K21.9 Gastro-esophageal reflux disease without esophagitis; F17.290 Nicotine dependence, other tobacco product, uncomplicated; Z98.890 Other specified postprocedural states; W22.03XA Walked into furniture, initial encounter; Y93.89 Activity, other specified; Y92.89 Other specified places as the place of occurrence of the external cause; Y99.8 Other external cause status

== ENCOUNTER 2025-04-11 03:16 | Emergency (ER) | payer MEDICAID | END 2025-04-11 03:50 | disposition left against medical advice (07) | LOC: ED 03:16 | DX: R09.89 Other specified symptoms and signs involving the circulatory and respiratory systems (principal); Z53.21 Procedure and treatment not carried out due to patient leaving prior to being seen by health care provider ==